=== PATIENT | female | born 1980 ===

== ENCOUNTER 2018-09-28 12:09 | Emergency (ER) | payer BC ==
[2018-09-28 12:09] VITALS: BMI 19.7
[2018-09-28 12:21] VITALS: TEMP 98.9
--- NOTE | 2018-09-28 14:25 | ED PDOC ---
Arrival/HPI - General Chief Complaint: Lower Extremity Problem/Injury Time Seen by Provider: 09/28/18 12:18 Historian: Patient - History of Present Illness Narrative History of Present Illness (Text): 09/28/18 12:18 Patient is a 38 year old female, with a past medical history of gastritis, who presents to the emergency department complaining of left knee pain since 5 days. Pt describes pain as "achy" over the posterior aspect of the left knee; informs applying icy-hot and compression to area. Pt denies numbness, weakness, tingling, or sensory deficits to left lower extremity. Denies recent travel by plane but informs of recent car ride to [facility]. Patient denies fall / trauma, injury, sensory deficits, chest pain, shortness of breath, abdominal pain, nausea, vomiting, diarrhea, dysuria. hematuria, or any other complaints. Time/Duration: < week (5 days) Symptom Course: Unchanged Activities at Onset: Light Context: Home Past Medical History - Provider Review Nursing Documentation Reviewed: Yes - Infectious Disease Hx of Infectious Diseases: None - Tetanus Immunization Tetanus Immunization: Unknown - Psychiatric Hx Depression: No Hx Emotional Abuse: No Hx Physical Abuse: No Hx Substance Use: No - Suicidal Assessment Feels Threatened In Home Enviroment: No Family/Social History - Physician Review Nursing Documentation Reviewed: Yes Family/Social History: Unknown Family HX Smoking Status: Never Smoked Hx Alcohol Use: No Hx Substance Use: No Allergies/Home Meds Allergies/Adverse Reactions: Allergies No Known Allergies Allergy (Verified 09/28/18 12:21) Review of Systems - Physician Review All systems were reviewed & negative as marked: Yes - Review of Systems Constitutional: absent: Fatigue, Fevers Respiratory: absent: SOB, Cough Cardiovascular: absent: Chest Pain, Palpitations Gastrointestinal: absent: Abdominal Pain, Diarrhea, Nausea, Vomiting Genitourinary Female: absent: Dysuria, Hematuria Musculoskeletal: Arthralgias (left knee pain). absent: Back Pain, Neck Pain, Other (fall, trauma, injury) Skin: absent: Rash, Pruritis Neurological: absent: Headache, Dizziness, Other (sensory deficits, numbness / weakness / tingling to left lower extremity) Physical Exam Vital Signs Reviewed: Yes Vital Signs Temp Pulse Resp BP Pulse Ox 09/28/18 12:18 98.9 F 92 H 18 116/77 98 Temperature: Afebrile Blood Pressure: Normal Pulse: Regular Respiratory Rate: Normal Appearance: Positive for: Well-Appearing, Non-Toxic, Comfortable Pain Distress: None Mental Status: Positive for: Alert and Oriented X 3 - Systems Exam Head: Present: Atraumatic, Normocephalic Pupils: Present: PERRL Extroacular Muscles: Present: EOMI Conjunctiva: Present: Normal Mouth: Present: Moist Mucous Membranes Neck: Present: Normal Range of Motion Respiratory/Chest: Present: Clear to Auscultation, Good Air Exchange. No: Respiratory Distress, Accessory Muscle Use, Wheezes, Rales, Rhonchi Cardiovascular: Present: Regular Rate and Rhythm, Normal S1, S2. No: Murmurs, Rub, Gallop Back: Present: Normal Inspection Upper Extremity: Present: Normal Inspection. No: Cyanosis, Edema Lower Extremity: Present: NORMAL PULSES, Normal ROM, Tenderness (minimal pain over medical aspect of left knee), Neurovascularly Intact, Capillary Refill < 2 s. No: Edema, CALF TENDERNESS, Cyanosis, Swelling, Deformity, Temperature Abnormalties Neurological: Present: GCS=15, Speech Normal Skin: Present: Warm, Dry, Normal Color. No: Rashes Psychiatric: Present: Alert, Oriented x 3 Medical Decision Making ED Course and Treatment: 09/28/18 12:18 Impression: Patient is a 38 year old female with a past medical history of gastritis who presents to the emergency department complaining of left knee pain since 5 days Plan: -- Left Knee X-Ray -- US Duplex Lower Extremities -- Reassess and disposition Prior Visits: Notes and results from previous visits were reviewed. Progress Notes: xray knee; no fracture us left leg; no dvt toradol given for pain pt is non toxic well appearing; no distress. Knee immobilizer and crutches given for ambulation all results were discussed in depth with the patient. Patient was advised to follow-up with the orthopedist within the next 2 days. She was advised to use crutches and knee immobilizer for ambulation. Patient was advised me to return if symptoms worsen persist or if new concerning symptoms develop Patient verbalizes understanding of discharge instructions and need for immediate followup. All aspects of this case were discussed the attending of record. Impression: Knee pain, leg pain Motrin every 6 hours as needed for pain Use knee immobilizer crutches for ambulation Follow-up with the orthopedist within the next 2 days Rest, ice, compression, elevation follow-up with primary care physician within the next 2 days Return immediately if symptoms worsen persist or if new concerning symptoms develop Reassessment Condition: Re-examined - RAD Interpretation Radiology Orders: 09/28/18 13:14 KNEE WITH PATELLA LEFT 3 VIEW [RAD] Stat DUPLEX LOWER EXTRM VEIN LEFT [US] Stat - Scribe Statement The provider has reviewed the documentation as recorded by the Scribe Ruben Bazzi All medical record entries made by the Scribe were at my direction and personally dictated by me. I have reviewed the chart and agree that the record accurately reflects my personal performance of the history, physical exam, medical decision making, and the department course for this patient. I have also personally directed, reviewed, and agree with the discharge instructions and disposition. Disposition/Present on Arrival - Present on Arrival Any Indicators Present on Arrival: No History of DVT/PE: No History of Uncontrolled Diabetes: No Urinary Catheter: No History of Decub. Ulcer: No History Surgical Site Infection Following: None - Disposition Have Diagnosis and Disposition been Completed?: Yes Diagnosis: Knee pain Disposition: HOME/ ROUTINE Disposition Time: 15:00 Patient Plan: Discharge Patient Problems: Current Active Problems Problem Status Onset Knee pain Acute Condition: GOOD Discharge Instructions (ExitCare): Knee Pain (DC) Additional Instructions: Motrin every 6 hours as needed for pain Use knee immobilizer crutches for ambulation Follow-up with the orthopedist within the next 2 days Rest, ice, compression, elevation follow-up with primary care physician within the next 2 days Return immediately if symptoms worsen persist or if new concerning symptoms develop Prescriptions: Ibuprofen [Motrin] 600 mg PO Q6H PRN #20 tab PRN Reason: pain/fever reduction Referrals: Gini Jaime DO [Primary Care Provider] - Follow up with primary Tao Funes MD [Staff Provider] - Follow up with primary [facility] [Outside] - Follow up with primary [facility] at [Outside] - Follow up with primary [facility] at [place] [Outside] - Follow up with primary Forms: [employer] (Bulgarian), WORK NOTE
--- NOTE | 2018-09-28 15:07 | RAD ---
Date of service: 09/28/2018 PROCEDURE: Left Knee Radiographs. HISTORY: Pain. COMPARISON: None. TECHNIQUE: 3 views obtained. FINDINGS: BONES: Normal. No fracture. JOINTS: Normal. No osteoarthritis. JOINT EFFUSION: None. OTHER FINDINGS: None. IMPRESSION: Normal radiographs of the left knee.
[2018-09-28 15:37] VITALS: RESP 16
[2018-09-28 16:48] VITALS: BP 110/75; PULSE 72; O2SAT 99
--- NOTE | 2018-09-28 17:14 | US ---
PROCEDURE: Left lower extremity venous US HISTORY: Leg pain and swelling. Evaluate for DVT. PHYSICIAN(S): Rai Forrester MD. TECHNIQUE: Duplex sonography and color-flow Doppler with graded compression were used to evaluate the deep venous system of the left lower extremity. FINDINGS: The visualized deep venous system of the left lower extremity is sonographically normal and compressible. Normal wave forms and augmentation are seen. There is no sonographic evidence for deep venous thrombosis in the visualized segments of the left lower extremity. IMPRESSION: 1. No sonographic evidence for deep venous thrombosis in the visualized segments of the left lower extremity.
== END 2018-09-28 16:35 | disposition home or self-care (01) ==
LOC: ED 12:09
DX: M25.562 Pain in left knee (principal)
CPT/HCPCS: 73562; 81025; 93971; 96372; 99284; J1885